=== PATIENT | male | born 1990 | race African-American/Black ===

== ENCOUNTER 2018-10-01 20:56 | Emergency (ER) | payer SELFPAY ==
[~2018-10-01] VITALS: Ht 182.9 cm; Wt 84.1 kg
[2018-10-01 20:56] VITALS: BP 138/89
[~2018-10-01 20:56] MED LIST: BENZ200C70 PO; ZOFR4TAB14 PO
[2018-10-01] MEDS ORDERED: AMOX875T PO (21:32)
[2018-10-01] MEDS ORDERED: AMOXICILLIN 500 MG CAP PO ONE (21:45)
== END 2018-10-01 21:46 | disposition home or self-care (01) ==
LOC: M ED 20:56
DX: J02.9 Acute pharyngitis, unspecified (principal); Z88.5 Allergy status to narcotic agent

== ENCOUNTER 2022-04-26 21:35 | Emergency (ER) | payer SELFPAY ==
[~2022-04-26] VITALS: Ht 180.3 cm; Wt 101.1 kg
[~2022-04-26 21:35] MED LIST changes: +AMOX875T PO
[2022-04-26 21:37] VITALS: BP 155/94
== END 2022-04-27 00:28 | disposition left against medical advice (07) ==
LOC: M ED 21:35
DX: Z53.21 Procedure and treatment not carried out due to patient leaving prior to being seen by health care provider (principal)